=== PATIENT | female | born 1990 | race Caucasian/White ===

== ENCOUNTER 2019-03-03 13:59 | Emergency (ER) | payer BC ==
[~2019-03-03] VITALS: Ht 170.2 cm; Wt 61.7 kg
--- OUTSIDE RECORDS SUMMARY | ~2019-03-03 | XMS | Clinical Summary ---
Demographics + + + | Address | [address] | | | [place] [address] | + + + | Home Phone | | + + + | Preferred Language | Unknown | + + + | Marital Status | Unknown | + + + | Quaker Affiliation | Unknown | + + + | Race | Unknown | + + + | Ethnic Group | Unknown | + + + Author + + + | Author | [facility] | + + + | Organization | [facility] | + + + | Address | Unknown | + + + | Phone | Unavailable | + + + Support + + +---------+ + | Name | Relationship | Address | Phone | + + +---------+ + | No,Contact | ECON | Unknown | | + + +---------+ + Care Team Providers + +------+ + | Care Commercial Sales Director Name | Role | Phone | + +------+ + | Elie Salgado MD | PP | | + +------+ + Allergies Not on File Current Medications Not on file Active Problems Not on file Social History + +-------+ +--------+------+ | Tobacco Use | Types | Packs/Day | Years | Date | | | | | Used | | + +-------+ +--------+------+ | Never Assessed | | | | | + +-------+ +--------+------+ + + + | Sex Assigned at | Date Recorded | | | | + + + | Not on file | | + + + Plan of Treatment Not on file Results Not on filefrom Last 3 Months"
--- OUTSIDE RECORDS SUMMARY | ~2019-03-03 | XMS | Clinical Summary ---
Demographics + + + | Address | [address] | | | [place] [address] | + + + | Home Phone | | + + + | Preferred Language | Unknown | + + + | Marital Status | Unknown | + + + | Congregational Affiliation | Unknown | + + + | Race | Unknown | + + + | Ethnic Group | Unknown | + + + Author + + + | Author | [facility] | + + + | Organization | [facility] | + + + | Address | Unknown | + + + | Phone | Unavailable | + + + Support + + +---------+ + | Name | Relationship | Address | Phone | + + +---------+ + | No,Contact | ECON | Unknown | | + + +---------+ + Care Team Providers + +------+ + | Care Net Software Architect Name | Role | Phone | + [...]
[~2019-03-03 13:59] MED LIST: CYCLOBENZAPRINE10 MG PO; CYCLOBENZAPRINE5 MG PO; CYMBALTA30 MG PO; HYDROCODON-ACE1 EA10 PO; IBUPROFEN600 MG PO; IBUPROFEN800 MG PO; LORAZEPAM1 MG PO; MOBIC15 MG PO; NORCO 5-325 TA1 EACH PO; PERCOCET 5-3251 EACH PO; PROMETHAZINE HC25 M1 PO; TYLENOL325 MG PO
[2019-03-03] MEDS ORDERED: FLAGYL500 MG PO (15:23)
[2019-03-03] MEDS ORDERED: CYCLOBENZAPRINE5 MG PO (16:28)
[2019-03-03] MEDS ORDERED: NAPROSYN500 MG PO (16:28)
--- NOTE | 2019-03-04 07:40 | EKG ---
[facility] [address] [place] [address] Signed Normal sinus rhythm Biatrial enlargement Abnormal ECG No previous ECGs available Confirmed by DUYEN ROSSI MD ([id number] on 03/04/2019 7:40:36 AM Electronically Signed By: DUYEN ROSSI MD 03/04/19 0740 PATIENT NAME: DAGO MANDUJANO Electrocardiogram DATE OF : 89 PHYSICIAN: DUYEN ROSSI MD REPORT #: [id number] REPORT IS CONFIDENTIAL AND NOT TO BE RELEASED WITHOUT AUTHORIZATION
== END 2019-03-03 16:35 | disposition home or self-care (01) ==
LOC: ED 13:59
DX: R07.89 Other chest pain (principal); F17.200 Nicotine dependence, unspecified, uncomplicated; Z88.0 Allergy status to penicillin
CPT/HCPCS: 71045; 80053; 83735; 84484; 85025; 85379; 93005; 93010; 96374; 99285-25; J1885

== ENCOUNTER 2019-03-06 11:33 | Emergency (ER) | payer BC ==
[~2019-03-06] VITALS: Ht 170.2 cm; Wt 61.7 kg
[~2019-03-06 11:33] MED LIST changes: +FLAGYL500 MG PO; +NAPROSYN500 MG PO
--- OUTSIDE RECORDS SUMMARY | 2019-03-06 11:36 | XMS ---
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 Elisabeth has no Care Guidelines for this patient. Kevin VISIT COUNT (12 MO.) [address] [facility] TOTAL 2 NOTE: Visits indicate total known visits. ED/C VISIT TRACKING (12 MO.) 03/06/2019 11:34 [facility] TYPE: Emergency COMPLAINT: - CHEST PAIN 03/03/2019 14:00 [facility] TYPE: Emergency COMPLAINT: - CHEST PAIN/LEFT SHOULDER PAIN DIAGNOSES: - Nicotine dependence, unspecified, uncomplicated - Other chest pain - Allergy status to penicillin INPATIENT VISIT TRACKING (12 MO.) No inpatient visits to display in this time frame [email or web address]
--- NOTE | 2019-03-06 16:45 | EKG ---
[facility] [address] [place] [address] Signed Normal sinus rhythm Right atrial enlargement Borderline ECG When compared with ECG of 03-MAR-2019 14:09, Nonspecific T wave abnormality no longer evident in Anterior leads Confirmed by DUYEN ROSSI MD ([id number]) on 03/06/2019 4:44:54 PM Electronically Signed By: DUYEN ROSSI MD 03/06/19 1645 PATIENT NAME: DAGO MANDUJANO Electrocardiogram DATE OF : [birth year] PHYSICIAN: DUYEN ROSSI MD REPORT #: [id number] REPORT IS CONFIDENTIAL AND NOT TO BE RELEASED WITHOUT AUTHORIZATION
== END 2019-03-06 13:50 | disposition home or self-care (01) ==
LOC: ED 11:33
DX: R06.02 Shortness of breath (principal); F17.200 Nicotine dependence, unspecified, uncomplicated; Z88.0 Allergy status to penicillin
CPT/HCPCS: 71045; 80053; 84484; 85025; 85379; 93005; 93010; 94640; 99285-25

== ENCOUNTER 2022-05-09 08:15 | Emergency (ER) | payer OTHER, BC ==
[~2022-05-09] VITALS: Ht 170.2 cm; Wt 57.6 kg
[2022-05-09] MEDS ORDERED: ADVIL LIQUI-GE200 MG PO (08:32)
== END 2022-05-09 09:54 | disposition home or self-care (01) ==
LOC: ED 08:15
DX: S93.401A Sprain of unspecified ligament of right ankle, initial encounter (principal); Z88.0 Allergy status to penicillin; F17.200 Nicotine dependence, unspecified, uncomplicated; W18.30XA Fall on same level, unspecified, initial encounter
CPT/HCPCS: 73610; 99283-25

== ENCOUNTER 2022-12-20 13:21 | Emergency (ER) | payer OTHER, BC ==
[~2022-12-20] VITALS: Ht 170.2 cm; Wt 57.6 kg
[~2022-12-20 13:21] MED LIST changes: +ADVIL LIQUI-GE200 MG PO
[2022-12-20] MEDS ORDERED: NAPROSYN500 MG PO (14:17)
== END 2022-12-20 14:31 | disposition home or self-care (01) ==
LOC: ED 13:21
DX: S39.011A Strain of muscle, fascia and tendon of abdomen, initial encounter (principal); G43.909 Migraine, unspecified, not intractable, without status migrainosus; M79.7 Fibromyalgia; F17.200 Nicotine dependence, unspecified, uncomplicated; Z88.0 Allergy status to penicillin; X50.0XXA Overexertion from strenuous movement or load, initial encounter; Y99.0 Civilian activity done for income or pay
CPT/HCPCS: 76705; 99284-25